=== PATIENT | female | born 1965 | race Caucasian/White ===

== ENCOUNTER → 2020-09-11 | Outpatient (CLI) | payer OTHER ==
[~2020-09-11] MED LIST: ACCU-CHEK1 EACH MC; ASPIRIN 325MG325 MG PO; ASPIRIN EC325 MG PO; ATORVASTATIN CA20 MG PO; BUSPIRONE HCL5 MG PO; CHLORTHALIDONE25 MG PO; COLACE 100MG C100 MG PO; DIABETA 5 MG TAB5 MG PO; GABAPENTIN300 MG PO; GLUCOSE TEST S1 EACH MC; HUMALOG 10100 UNITS/ SC; HYDROCODON-ACE1 EAC2 PO; HYDROCODON-ACE1 EAC6 PO; LANTUS INS100 UTS/M1 SQ; LANTUS SOL100 UNIT/1 SQ; METFORMIN HCL1000 MG PO; MOBIC7.5 MG PO; POLYETHYLENE GL17 GM PO; PRINIVIL20 MG PO; REMERON15 MG PO
[2020-09-11 12:43] LABS: RED BLOOD COUNT 4.66 M/UL (4.00-5.10); WHITE BLOOD COUNT 10.1 K/UL (4.5-11.0)
== END ==
LOC: OPSV2 11:17 → EDSTATUS 11:30 → OPSV2 11:30
PROVIDERS: Orthopaedic Surgery
DX: Z01.818 Encounter for other preprocedural examination (principal); M17.11 Unilateral primary osteoarthritis, right knee; R00.0 Tachycardia, unspecified
CPT/HCPCS: 36415; 80048; 81001; 83036; 85025; 93005

== ENCOUNTER → 2020-09-23 | Outpatient (CLI) | payer OTHER ==
[2020-09-23 13:30] LABS: BUN/CREATININE RATIO 22 (0-10)
== END ==
LOC: LAB 10:16
PROVIDERS: Orthopaedic Surgery
DX: Z01.812 Encounter for preprocedural laboratory examination (principal)
CPT/HCPCS: 36415; 80048; 86850; 86900; 86901

== ENCOUNTER 2020-09-24 07:34 | Day surgery (SDC) | payer OTHER ==
[~2020-09-24] VITALS: Ht 167.6 cm; Wt 103.9 kg
[~2020-09-24 07:34] MED LIST changes: -HYDROCODON-ACE1 EAC2 PO; -HYDROCODON-ACE1 EAC6 PO
--- NOTE | 2020-09-25 01:15 | NUR ---
09/24/201929 PT PLACED BACK TO BED. RADHA PONCE APPLIED TO LEFT LEG AND LILIANA APPLIED TO LEFT LEG.
--- NOTE | 2020-09-25 01:15 | NUR ---
09/24/20 0000 POLAR ICE CHALO TURNED OFF AT THIS TIME
[2020-09-25 04:58] LABS: HEMOGLOBIN 10.5 gm/dl (12.3-15.3); RED BLOOD COUNT 3.87 M/UL (4.00-5.10); WHITE BLOOD COUNT 11.3 K/UL (4.5-11.0)
[2020-09-25 05:19] LABS: BUN/CREATININE RATIO 22 (0-10)
[2020-09-26 04:26] LABS: HEMOGLOBIN 10.6 gm/dl (12.3-15.3); RED BLOOD COUNT 3.94 M/UL (4.00-5.10); WHITE BLOOD COUNT 10.7 K/UL (4.5-11.0)
[2020-09-26] MEDS ORDERED: HYDROCODON-ACE1 EAC6 PO (08:37)
[2020-09-27] MEDS ORDERED: HYDROCODON-ACE1 EAC2 PO (10:51)
== END 2020-09-26 14:42 | disposition home or self-care (01) ==
LOC: OR 07:34 → M/S 16:31 → OR 09-26 14:42
PROVIDERS: Orthopaedic Surgery
DX: M17.11 Unilateral primary osteoarthritis, right knee (principal); I10 Essential (primary) hypertension; E78.5 Hyperlipidemia, unspecified; F41.9 Anxiety disorder, unspecified; K21.9 Gastro-esophageal reflux disease without esophagitis; E11.40 Type 2 diabetes mellitus with diabetic neuropathy, unspecified; Z79.4 Long term (current) use of insulin; Z96.652 Presence of left artificial knee joint
CPT/HCPCS: 36415; 73560; 76000; 80048; 82962; 85027; 97110-GP-CQ; 97116-GP-CQ; 97161; 97165; 97530-GP-CQ; 97535; C1776; J0171; J0690; J1100; J1170; J1885; J2001; J2250; J2704; J2710; J2795; J3010; J7030; J7120